=== PATIENT | female | born 1980 | race African-American/Black ===

== ENCOUNTER 2018-08-19 20:59 | Emergency (ER) | payer OTHER, SELFPAY | END 2018-08-20 02:15 | disposition home or self-care (01) | LOC: ERS 20:59 | DX: F14.10 Cocaine abuse, uncomplicated (principal); R20.2 Paresthesia of skin; F41.9 Anxiety disorder, unspecified; F31.9 Bipolar disorder, unspecified | CPT/HCPCS: 99284 ==

== ENCOUNTER 2018-09-06 22:26 | Emergency (ER) | payer SELFPAY ==
--- NOTE | 2018-09-06 22:52 | RAD ---
PORTABLE CHEST: History: Shortness of breath. Chest pain. FINDINGS: Lungs are clear. Heart and mediastinum unremarkable. IMPRESSION: No acute findings. POS: [facility]
[2018-09-06] MEDS ORDERED: Acetaminophen 500 MG TAB ONE (22:53)
[2018-09-06] MEDS ORDERED: Ibuprofen 800 MG TAB ONE (22:53)
[2018-09-07] MEDS ORDERED: Milk Of Magnesia 30 ML UDCUP ONE (02:01)
[2018-09-07] MEDS ORDERED: Lidocaine Viscous Sol 2% 15 ml UD Cup ONE (02:01)
[2018-09-07] MEDS ORDERED: Mag-Al 1200 mg/1200 mg/30 ML UDCUP ONE (02:02)
== END 2018-09-07 02:12 | disposition home or self-care (01) ==
LOC: ERS 22:26
DX: K20.9 Esophagitis, unspecified (principal); F41.9 Anxiety disorder, unspecified; F31.9 Bipolar disorder, unspecified
CPT/HCPCS: 71045; 93005

== ENCOUNTER 2019-01-10 20:50 | Emergency (ER) | payer OTHER, SELFPAY ==
[2019-01-10] MEDS ORDERED: Midazolam HCl 5 mg/ml Vial ONE (20:51)
[2019-01-10 21:15] LABS: #Eosinphils 0.1 thou/uL (0.0-0.7); #Lymphocytes 1.5 thou/uL (1.20-3.40); #Monocytes 0.9 thou/uL (0.11-0.59); #Neutrophils 4.9 thou/uL (1.40-6.50); %Basophils 0.2 % (0.0-1.0); %Lymphocytes 20.7 % (21.0-51.0); %Neutrophils 66.1 % (42.0-75.0); Hemoglobin 10.9 g/dL (12.0-16.0); Mean Corpuscular Hemoglobin 29.1 pg (27.0-31.0); Mean Corpuscular Volume 88.1 fL (78.0-98.0); Mean Platelet Volume 7.5 fL (7.4-10.4); Platelet Count 270 thou/uL (130-400); RBC Distribution Width 13.1 % (11.5-14.5); Red Blood Cell (RBC) Count 3.74 mill/uL (4.20-5.40); White Blood Cell (WBC) Count 7.4 thou/uL (4.8-10.8)
[2019-01-10 21:23] LABS: BHCG - Serum Negative (NEGATIVE); Pregs Control Background? CLEAR/WHITE (CLR/WHITE); Pregs Control Bar Appear? YES (CONTROL BAR)
[2019-01-10 21:29] LABS: ALT (SGPT) 37 U/L (8-55); AST (SGOT) 79 U/L (5-34); Albumin 4.4 g/dL (3.5-5.0); Alkaline Phosphatase 71 U/L (40-150); Anion Gap 18 mmol/L (10-20); BUN (Urea Nitrogen) 19 mg/dL (7.0-18.7); Bilirubin, Total 1.1 mg/dL (0.2-1.2); CK (CPK) 3484 U/L (29-168); Calc. Creatinine Clearance 0 mL/min (70-130); Calcium 9.4 mg/dL (7.8-10.44); Carbon Dioxide 21 mmol/L (22-29); Chloride 104 mmol/L (98-107); Estimated GFR-MDRD 51; Globulin 3.5 g/dL (2.4-3.5); Glucose 94 mg/dL (70-105); Protein, Total 7.9 g/dL (6.0-8.3); Sodium 140 mmol/L (136-145)
[2019-01-10 21:30] LABS: Acetaminophen Less than 6.0 mcg/mL (10.0-30.0); Alcohol Less than 10 mg/dL (Less than 10); Salicylate Less than 8.0 mg/dL (15.0-30.0)
[2019-01-10 22:02] LABS: Bilirubin Small (Negative); Blood, Urine Moderate (Negative); Clarity CLEAR (Clear); Glucose, Urine (Dipstick) Negative (Negative); Leukocyte Small (Negative); Nitrite Negative (Negative); Protein, Urine (Dipstick) 100 mg/dL (Neg-Trace)
[2019-01-10 22:07] LABS: Pathc Cast-AUWi Flag 8.43 (0-2.49)
[2019-01-10 22:08] LABS: Amphetamine Not Detected (NotDetected); Barbiturates Screen Not Detected (NotDetected); Benzodiazepine Screen Not Detected (NotDetected); Cocaine Metabolite Screen Detected (NotDetected); Medtox Control Line Valid? VALID (VALID); Medtox Reader # READER 1; Methadone Not Detected (NotDetected); Methamphetamine Not Detected (NotDetected); Opiate Screen Not Detected (NotDetected); Oxycodone Screen Not Detected (NotDetected); Phencyclidine (PCP) Not Detected (NotDetected); THC/Cannabinoid Screen Not Detected (NotDetected); Tricyclic Screen Not Detected (NotDetected)
[2019-01-10 22:15] LABS: Bacteria/HPF Rare-Few HPF (None Seen)
[2019-01-10] MEDS ORDERED: Midazolam HCl 2 mg/2 ml Vial ONE (23:26)
[2019-01-11] MEDS ORDERED: Haloperidol Lactate 5 MG/ML VIAL ONE (00:08)
[2019-01-11] MEDS ORDERED: diphenhydrAMINE 50 MG/ML VIAL ONE (00:08)
== END 2019-01-11 03:30 ==
LOC: ERS 20:50
DX: F14.10 Cocaine abuse, uncomplicated (principal); E86.0 Dehydration; M62.82 Rhabdomyolysis; F41.9 Anxiety disorder, unspecified; F31.9 Bipolar disorder, unspecified
CPT/HCPCS: 36415; 51701; 80053; 80306; 80307; 81003; 81015; 82550; 84703; 85025; 93005; 94760; 96361; 96374; 96375; 96376; A4353; J1200; J1630; J2250

== ENCOUNTER 2019-11-13 02:24 | Emergency (ER) | payer OTHER, SELFPAY | END 2019-11-13 03:10 | LOC: ERS 02:24 | DX: F19.10 Other psychoactive substance abuse, uncomplicated (principal); F31.9 Bipolar disorder, unspecified; F41.9 Anxiety disorder, unspecified | CPT/HCPCS: 99284 ==